=== PATIENT | male | born 1960 | race Caucasian/White ===

== ENCOUNTER 2018-03-23 10:11 | Emergency (ER) | payer OTHER ==
[~2018-03-23] VITALS: Ht 172.7 cm; Wt 84.4 kg
[2018-03-23 10:15] VITALS: BP 127/65
--- NOTE | 2018-03-23 10:18 | NUR ---
PT CARMEN[facility] BLS FOR ANXIETY TO BED 7
--- NOTE | 2018-03-23 10:22 | NUR ---
DR HODGE AT BEDSIDE TO EVAL.
--- NOTE | 2018-03-23 10:23 | NUR ---
PT COMES TO ED C/O ABD PAIN AND ANXIETY, WITH H/O ANXIETY. PT IS DISHEVELED IN APPEARENCE, TANGENTIAL, IMPULSIVE, AND LIP SMACKING. PTS SPEECH IS EXCESSIVE, SLIGHTLY GARBLED. AXO X4. PERRLA. FOLLOWS COMMANADS WELL, ANSWERING QUESTIONS IN FULL SENTENCES. PLACED ON ALL MONITORS, TACHYCARDIA AT 120 OBSERVED, DR HODGE NOTIFIED. PT STATES HE DID NOT TAKE HIS BP MEDS TODAY DUE TO THE ABD PAIN. DENEIS N/V/D OR SOB.
[2018-03-23 10:40] VITALS: BP 127/65
--- NOTE | 2018-03-23 10:41 | NUR ---
Patient discharged with v/s stable. Written and verbal after care instructions given and explained. Patient verbalized understanding. Ambulatory with steady gait. All questions addressed prior to discharge. Advised to follow up with PMD.
== END 2018-03-23 10:41 | disposition home or self-care (01) ==
LOC: MED 10:11
DX: I10 Essential (primary) hypertension (principal); E11.9 Type 2 diabetes mellitus without complications; Z87.891 Personal history of nicotine dependence
CPT/HCPCS: 93005; 99283

== ENCOUNTER 2022-08-18 22:30 | Emergency (ER) | payer MEDICAID, OTHER ==
[~2022-08-18] VITALS: Ht 172.7 cm; Wt 86.2 kg
[2022-08-18 22:40] VITALS: BP 160/100
--- NOTE | 2022-08-18 22:43 | NUR ---
TO LOBBY A/W BED AMBULATORY
--- NOTE | 2022-08-19 00:18 | NUR ---
PT TO BED #11
--- NOTE | 2022-08-19 00:23 | NUR ---
RAD AT BEDSIDE FOR CXR
[2022-08-19 00:27] LABS: BASOPHILS % (AUTO) 0.9 % (0.0-2.0); EOSINOPHILS # (AUTO) 0.1 K/uL (0-0.4); EOSINOPHILS % (AUTO) 2.2 % (0.0-4.0); HEMOGLOBIN 14.5 g/dL (12.0-18.0); LYMPHOCYTES # (AUTO) 1.5 K/uL (2.0-11.5); LYMPHOCYTES % (AUTO) 28.2 % (20.5-51.1); MEAN CORPUSCULAR HEMOGLOBIN 31 pg (27-31); MEAN CORPUSCULAR HGB CONC 34 g/dL (33-37); MEAN CORPUSCULAR VOLUME 92.8 fL (80-94); MONOCYTES # (AUTO) 0.4 K/uL (0.8-1.0); MONOCYTES % (AUTO) 7.8 % (1.7-9.3); NEUTROPHILS # (AUTO) 3.3 K/uL (1.8-7.7); NEUTROPHILS % (AUTO) 60.9 % (42.2-75.2); PLATELET COUNT (AUTO) 237 K/uL (140-450); RED BLOOD CELL COUNT(AUTO) 4.63 MIL/uL (4.20-6.10); RED CELL DISTRIBUTION WIDTH 13.4 % (11.6-13.7); WHITE BLOOD COUNT (AUTO) 5.3 K/uL (4.8-10.8)
--- NOTE | 2022-08-19 00:30 | NUR ---
PT AMBLUATE TO ROOM 11. PT IN GOWN AND BEDSIDE ASSET PROTECTION AGENT
[2022-08-19 00:40] LABS: ALBUMIN 3.7 g/dL (3.4-5.0); ANION GAP 11.8 (8-16); CARBON DIOXIDE 28.3 mmol/L (21-32); CREATININE 1.2 mg/dL (0.6-1.3); POTASSIUM 4.1 mmol/L (3.5-5.1); TOTAL BILIRUBIN 0.4 mg/dL (0.0-1.0)
--- NOTE | 2022-08-19 01:01 | NUR ---
LAURENCE AKBAR made aware of pt's BP
[2022-08-19] MEDS ORDERED: ASPIRIN 325 MG TAB PO ONE (01:10)
[2022-08-19] MEDS ORDERED: hydrALAZINE 20 MG/ML VIAL IVP ONE (01:10)
[2022-08-19] MEDS ORDERED: MORPHINE SULFATE 4 MG/ML SYR IVP ONE (01:10)
--- NOTE | 2022-08-19 01:17 | NUR ---
ERMD SIN EXAMINING PT BEDSIDE
[2022-08-19] MEDS ORDERED: LABETALOL 100 MG/20 ML VIAL IVP ONE (02:45)
[2022-08-19] MEDS ORDERED: AMLO5TAB PO (03:06)
[2022-08-19] MEDS ORDERED: NAPR-54 PO (03:06)
[2022-08-19 03:50] VITALS: BP 158/100
--- NOTE | 2022-08-19 03:50 | NUR ---
Patient discharged. ER MD aware of B/P elevated but is comfortable sending patient home. Written and verbal after care instructions given and explained. Patient alert, oriented and verbalized understanding of instructions. Ambulatory with steady gait. All questions addressed prior to discharge. ID band removed. Patient advised to follow up with PMD. Rx of Norvasc, & Naproxen given. Patient educated on indication of medication including possible reaction and side effects. Opportunity to ask questions provided and answered.
== END 2022-08-19 03:50 | disposition home or self-care (01) ==
LOC: MED 22:30
DX: R07.9 Chest pain, unspecified (principal); I10 Essential (primary) hypertension; F41.9 Anxiety disorder, unspecified; E11.9 Type 2 diabetes mellitus without complications; Z79.4 Long term (current) use of insulin; Z79.899 Other long term (current) drug therapy
CPT/HCPCS: 36415; 71045; 80053; 83880; 84484; 85025; 85379; 93005; 96374; 96375; 99285; J0360; J3490; Q0092